=== PATIENT | female | born 1970 | race African-American/Black ===

== ENCOUNTER 2019-05-25 13:46 | Outpatient (CLI) | payer OTHER, SELFPAY | END 2019-05-25 13:47 | disposition home or self-care (01) | LOC: ANHAUDIO 13:47 | DX: H66.91 Otitis media, unspecified, right ear (principal) | CPT/HCPCS: 92557; 92567 ==

== ENCOUNTER 2021-11-27 09:29 | Outpatient (CLI) | payer OTHER, SELFPAY | END 2021-11-27 09:30 | disposition home or self-care (01) | LOC: ANHAUDIO 09:31 | PROVIDERS: Visit Provider Otolaryngology | DX: H90.42 Sensorineural hearing loss, unilateral, left ear, with unrestricted hearing on the contralateral side (principal); H90.71 Mixed conductive and sensorineural hearing loss, unilateral, right ear, with unrestricted hearing on the contralateral side | CPT/HCPCS: 92557; 92567 ==

== ENCOUNTER 2022-04-02 12:41 | Outpatient (CLI) | payer OTHER, SELFPAY | END 2022-04-02 12:42 | disposition home or self-care (01) | LOC: ANHAUDIO 12:42 | PROVIDERS: Visit Provider Otolaryngology | DX: H90.3 Sensorineural hearing loss, bilateral (principal) | CPT/HCPCS: 92557; 92567 ==